=== PATIENT | male | born 1960 | race Caucasian/White ===

== ENCOUNTER 2017-08-10 09:33 | Day surgery (SDC) | payer OTHER ==
[~2017-08-10] VITALS: Ht 198.1 cm; Wt 100.0 kg
--- NOTE | 2017-08-10 08:37 | History and Physical ---
History & Physical Date of Service Aug 10, 2017. History & Physical 57-year-old male patient provider An Bhatia with an abnormal CT of the chest recurrent cough. PmHx includes: COPD, allergies/post nasal gtt, acid reflux, dyslipidemia, and bronchiectasis. He is a lifelong nonsmoker with approximately 30 years of significant secondhand smoke exposure. Additionally he reports history of snuff use 25 years quit age 35. 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 Several years ago patient was seen by Dr. Stokes in the setting of acute respiratory infection. He states he has been prescribed Advair 250/50 in the past as well as Proventil with infrequent use of CLARISSE. Additionally he has been prescribed Spiriva as well. He established in this office 06/2017 with h/ o frequent and severe respiratory infections. He states that typically infections will move quickly to his chest specifically on the left and will progress rapidly when he does get sick. His primary sensation involves the right chest. He does have a rescue pack of azithromycin and prednisone available to him and he states he has used this x2 since the summer. When he is feeling well - he maintains a vigorous exercise regimen without limitation however chronic daily cough persists. Of note during his work in a present he did complete annual TB test - he plans to retire in August 2017. PFT 06/02/2017: FVC: 3.89/60 % (8 % change), FEV1: 2.59/53 % (13 % change), FEV1/FVC: 67 %/87 %, FEF 25-75 %: 1.57/40 % (47 % change) Chest x-ray 07/2015: Hyperinflation with flat diaphragms and increased AP diameter of the chest suggesting COPD. The lungs are clear with normal heart and pulmonary vasculature. There is mild biapical pleural thickening and parenchymal scarring right greater than left-stable. CT thorax 09/02/2011: Nodular tree-in-bud opacities throughout the right lung and left upper lung most pronounced in the right middle lobe. Some of these are tree-in-bud and have improved well others have slightly progressed compared to CT 02/10/2011. These findings are most consistent with infectious or inflammatory process. There are few small calcified granulomas noted as well. There is no adenopathy. CT [facility]: Tree-in-bud nodularity greatest in the upper lobes. Mild bronchiectasis. Segmental atelectasis in the lingula. Minimal endobronchial debris in the right middle lobe. Multiple bilateral perifissural nodules. Calcified granulomas present. These images were reviewed. Additionally patient underwent lab work. This included hypersensitivity panel, IgG, and IgA. The anti IgE receptor antibody was elevated at 21. Active Problems 1. Abnormal CT scan 2. Bronchiectasis 3. COPD (chronic obstructive pulmonary disease) with chronic bronchitis 4. Cough 5. Dyslipidemia 6. High triglycerides 7. Pneumonia 8. Retinal edema 9. History of Exposure to second hand smoke 10. History of asbestos exposure 11. Postnasal Drip Surgical History 1. Carpal tunnel surgery 2. Cataract surgery 3. Tonsillectomy with adenoidectomy 4. Tabeculectomy Social History Never smoker Current Meds 1. Advair Diskus 250-50 MCG/DOSE Inhalation Aerosol Powder Breath Activated; INHALE 1 2. Anacin 400-32 MG Oral Tablet; TAKE 1 TO 2 TABLETS 4 TIMES DAILY NEEDED 3. Aspirin 81 MG TABS; TAKE 1 TABLET DAILY 4. Atorvastatin Calcium 40 MG Oral Tablet; TAKE 1 TABLET DAILY 5. Fish Oil 1000 MG Oral Capsule; TAKE 1 CAPSULE 3 times daily 6. Flonase 50 MCG/ACT SUSP; USE 2 SPRAYS IN EACH NOSTRIL ONCE DAILY; 7. Ipratropium [place] 0.03 % Nasal Solution 8. Montelukast Sodium 10 MG Oral Tablet; TAKE 1 TABLET DAILY 9. Multi-Vitamin Oral Tablet; TAKE 1 TABLET DAILY 10. Omeprazole 20 MG Oral Capsule Delayed Release; TAKE 1 CAPSULE Daily 11. ProAir HFA 108 (90 Base) MCG/ACT Inhalation Aerosol Solution; INHALE 2 PUFFS 4 12. Zithromax 250 MG Oral Tablet; TAKE 2 TABLETS ON DAY 1 THEN TAKE 1 TABLET A DAY Allergies 1. No Known Drug Allergies Vital Signs Blood Pressure: 138 / 84, LUE, Sitting Height: 6 ft 6.5 in Weight: 229 lb 4 oz BMI Calculated: 26.16 BSA Calculated: 2.4 O2 Saturation: 96, RA Respiration: 16 Temperature: 98.4 F Heart Rate: 76 Constitutional: Well developed, well nourished male. No acute distress. Head: + facial symmetry Eyes: EOMi, PERRLA, no conjunctival injection Mouth: Mallampati [I]. Slight uvular deviation to the right. No erythema, exudate, or post nasal gtt Neck: Trachea midline. Fullness to sternal notch but no fullness or tenderness to palpation. Respiratory: Non-labored respirations. No wheeze or rales. No clubbing or cyanosis. Cardiovascular: RRR, no MRG. +2 radial pulses. <1s capillary refill. Abdomen: soft, active bowel sounds Integumentary: no visible rashes, or ecchymosis MSK/Extremities: Moving and developed symmetrically. No peripheral edema. No calf tenderness. Neurologic: A&O, data recall in-tact. Appropriate affect.
[~2017-08-10 09:33] MED LIST: ADVIN25/60 INH; ASPI1TAB83 PO; ASPI400T11 PO; ATOR-24 PO; IBUP1TAB PO; MONT1TAB5 PO; MULT-506 PO; OMEG10007 PO; PRLSR20 PO
[2017-08-10 09:50] VITALS: BP 147/66; PULSE 78; TEMP 36.8; O2SAT 97; Ht 198.1 cm; Wt 100.0 kg
[2017-08-10] MEDS ORDERED: ALBU2SYP9 (09:59)
[2017-08-10] MEDS ORDERED: [UNRECOGNIZED DRUG - REMARK] NAE (10:01)
[2017-08-10] MEDS ORDERED: ONDANSETRON INJ 2 MG/ML 2 ML VIAL IV STA (10:39)
--- NOTE | 2017-08-10 10:39 | Pre Sedation Assessment ---
Pre Sedation Assessment General Date of Sedation: Aug 10, 2017. Vital Signs Past 12 Hours Date Time Temp Pulse Resp B/P (MAP) Pulse Ox O2 Delivery O2 Flow Rate FiO2 08/10/17 09:50 36.8 78 16 147/66 (93) 97 Room Air Review Cardiovascular: regular rate, rhythm, no edema, no gallop, no JVD, no murmur, normal peripheral pulses Lungs: chest non-tender, lungs clear, normal breath sounds, no respiratory distress, no accessory muscle use Pre-Sedation Airway Assessment Smoking Status: Never Smoker Hx of Sleep Apnea: No Hx of difficult intubation: Yes Short Thick Neck: No Thyro-mental Distance: > 3 Finger Breadths Oral Cavity: Capped Teeth Mallampati Classification: Class II ASA Classification: Class II NPO Status Date of Last Intake of Fluids: Aug 09, 2017 Time of Last Intake of Fluids: 2129 Date of Last Intake of Solids: Aug 09, 2017 Time of Last Intake of Solids: 2129 Procedure Planning Contraindications for Sedation: None Current Medications Reviewed: Yes Notes The planned sedation has been discussed with the patient. Informed Consent was obtained. I have identified the patient, determined the appropriateness of sedation and have assessed the patient immediately prior to the procedure. All medicine(s) and interventions are by my order.
--- NOTE | 2017-08-10 10:39 | History & Physical Bridge Note ---
H&P Re-Evaluation Bridge Note: I have examined the patient, reviewed the History & Physical and in the interval since the performance of the History & Physical I have noted the following changes of clinical significance: No changes noted
[2017-08-10] MEDS ORDERED: ONDANSETRON INJ 2 MG/ML 2 ML VIAL ONE ×2 (10:42→12:52)
[2017-08-10] MEDS ORDERED: LIDOCAINE 4% INH SOLN 4 ML BTL TOP ONE (10:55)
[2017-08-10] MEDS ORDERED: MIDAZOLAM HCL 5 MG/ML 1 ML VIAL IV ONE (11:10)
[2017-08-10] MEDS ORDERED: LIDOCAINE VISCOUS 2% 100ML TOP ONE (11:10)
[2017-08-10] MEDS ORDERED: LIDOCAINE HCL 2% LOCAL 50ML VIAL INSTIL ONE (11:15)
--- NOTE | 2017-08-10 11:28 | Bronchoscopy Procedure Note ---
Bronchoscopy Procedure Note Procedure: Bronchoscopy, conscious sedation, bronchial lavage lingula and right middle lobe Consent: Obtained through the patient placed into the chart Pre-procedural diagnosis: Bronchiectasis/chronic cough Post-procedural diagnosis: Bronchiectasis/chronic Start time: 1110 End time: 1120 Total time: 10 minutes Analgesia: 2% liquid lidocaine: Via nebulizer 4% gel lidocaine: Via right naris 2% liquid lidocaine: Via bronchoscopy Sedation: Versed IV: 3mg Fentanyl IV: 75g Procedure: The Olympus video bronchoscope was used for this procedure and passed down through the right naris Right naris/posterior naris/posterior oropharynx: Diffuse erythema, notable cobblestoning Glottis: Anatomically within normal limits, mild erythema noted along the glottis Vocal cords: Proper abduction and abduction, anatomically within normal limits Subglottis/trachea/Negrita: Anatomically within normal limits Right bronchial tree: Right mainstem bronchus: Anatomically within normal limits Right upper lobe: Anatomically within normal limits Bronchus intermedius: Anatomically within normal limits Right middle lobe: Anatomically within normal limits, diffuse mucous appreciated from the lobe easily cleared Right lower lobe: Anatomically within normal limits,diffuse mucous appreciated from the lobe easily cleared Findings: No significant findings noted, diffuse mucus in the right middle and right lower lobes Left bronchial tree: Left mainstem bronchus: Anatomically within normal limits, mild mucous plugs appreciated the takeoff Left upper lobe: Anatomically within normal limits Lingula: Anatomically within normal limits, LB5 subsegment notably externally compressed without full reexpansion during inspiratory phase Left lower lobe: Anatomically within normal limits, diffuse plugs Findings: Mild external compression appreciated in the LB5 subsegment Bronchial alveolar lavage: Right middle lobe and lingula EBL: None Complications: Minimal nasal bleeding/epistaxis Follow-up: [facility]
[2017-08-10] MEDS ORDERED: FENTANYL CITRATE INJ 50 MCG/1 ML 2 ML VIAL IV ONE (11:30)
--- NOTE | 2017-08-10 11:32 | Discharge Instructions ---
Discharge Instructions Date of Service Aug 10, 2017. Admission Reason for Admission: Copd, Cough, Bronchiectasis *Dr Baird To Do* Discharge Discharge Diagnosis / Problem: bronchoscopy, conscious sedation bronchial lavage of the right middle lobe Discharge Goals Goal(s): Diagnostic testing Activity Recommendations Activity Limitations: resume your previous activity . Instructions / Follow-Up Instructions / Follow-Up Follow-up in the [facility] pulmonary clinic Current Hospital Diet Patient's current hospital diet: Discharge Diet Recommended Diet: Regular Diet Procedures Procedures Performed: Bronchoscopy, bronchial lavage, conscious sedation Pending Studies Studies pending at discharge: no Medical Emergencies . Who to Call and When: Medical Emergencies: If at any time you feel your situation is an emergency, please call 911 immediately. . Non-Emergent Contact Non-Emergency issues call your: [employer] . . "Provider Documentation" section prepared by Adarsh Baird. . VTE Core Measure Inpt VTE Proph given/why not?: Treatment not indicated
[2017-08-10 11:45] VITALS: BP 132/78; PULSE 81; TEMP 36.7; O2SAT 93
[2017-08-10 12:15] VITALS: BP 115/67; PULSE 73; TEMP 36.3; O2SAT 94
[2017-08-10 12:45] VITALS: BP 131/69; PULSE 78; TEMP 36.4; O2SAT 93
[2017-08-10] MEDS ORDERED: NURSING VERBAL MED ORDER ONE (13:00)
[2017-08-10 13:16] VITALS: BP 117/68; PULSE 70; O2SAT 96
[2017-08-10 13:45] VITALS: BP 127/65; PULSE 78; TEMP 36.3; O2SAT 95
== END 2017-08-10 13:57 | disposition home or self-care (01) ==
LOC: C.ACU 09:33
PROVIDERS: ATTEND Internal Medicine Critical Care Medicine
DX: J47.9 Bronchiectasis, uncomplicated (principal); R04.0 Epistaxis; J44.9 Chronic obstructive pulmonary disease, unspecified; K21.9 Gastro-esophageal reflux disease without esophagitis; E78.5 Hyperlipidemia, unspecified; Z87.891 Personal history of nicotine dependence; Z77.22 Contact with and (suspected) exposure to environmental tobacco smoke (acute) (chronic); Z77.090 Contact with and (suspected) exposure to asbestos; Z79.82 Long term (current) use of aspirin; Z79.899 Other long term (current) drug therapy